=== PATIENT | male | born 1975 | race Caucasian/White ===

== ENCOUNTER 2018-03-06 12:41 | Emergency (ER) | payer SELFPAY ==
[2018-03-06 12:42] VITALS: BP 142/68; PULSE 103; RESP 18; TEMP 36.7; O2SAT 97; BMI 30.1
--- NOTE | 2018-03-06 14:05 | ED.RN ---
CALLED FOR PT IN WAITING AREA [facility]. NOT PRESENT.
--- NOTE | 2018-03-06 14:40 | ED.RN ---
second attempt to call pt for room. not present./ lwbs
== END 2018-03-06 15:00 | disposition left against medical advice (07) ==
LOC: ED 15:38
PROVIDERS: Emergency Provider Emergency Medicine
DX: M54.9 Dorsalgia, unspecified (principal)

== ENCOUNTER 2018-04-04 10:11 | Emergency (ER) | payer MEDICAID, SELFPAY ==
[2018-04-04 10:12] VITALS: BP 117/78; PULSE 108; RESP 12; TEMP 36.4; BMI 29.8
--- NOTE | 2018-04-04 10:23 | RAD_ITS ---
STUDY: X-RAY - PELVIS REASON FOR EXAM: Male, 42 years old. Fall off ladder. TECHNIQUE: One view of the pelvis was obtained. COMPARISON: None. FINDINGS: There is a non-specific bowel gas pattern. Normal visualized soft tissue structures. Normal bilateral iliac wings, sacroiliac joints and visualized sacrum. Normal visualized bilateral superior and inferior pubic rami. Normal pubic symphysis. Normal ischial tuberosities. Normal visualized right femoral head. Normal right acetabulum. Normal right hip joint. Normal visualized left femoral head. Normal left acetabulum. Normal left hip joint. RAD/Pelvis 1 or 2 Views IMPRESSION: Normal x-ray examination of the pelvis. Electronically Signed: Anabel Whiteside MD at 11:24 EDT Tel , Service support ,
[2018-04-04] MEDS: Ketorolac 60 MG/2 ML Vial IM (10:31)
--- NOTE | 2018-04-04 10:35 | RAD_ITS ---
STUDY: X-RAY - LEFT WRIST REASON FOR EXAM: Male, 42 years old. Fall off ladder. TECHNIQUE: 3 view(s) of the wrist were obtained. COMPARISON: None. FINDINGS: Normal visualized distal radius and ulna. Normal radiocarpal articulation. Normal distal radioulnar articulation. Normal carpal bones. Normal carpal articulations. Normal carpometacarpal articulation of the thumb. Normal second through fifth carpometacarpal articulations. Normal visualized metacarpal bones. The soft tissue structures are unremarkable. RAD/Wrist min 3 Views IMPRESSION: Normal x-ray examination of the wrist. Electronically Signed: Anabel Whiteside MD at 11:24 EDT Tel , Service support ,
--- NOTE | 2018-04-04 10:50 | RAD_ITS ---
STUDY: X-RAY - RIGHT FEMUR REASON FOR STUDY: Male, 42 years old. pt. fell off of a ladder, complaining of distal femur pain and wrist pain TECHNIQUE: Radiological exam, femur, minimum 2 views COMPARISON: None. FINDINGS: Normal visualized femur. Normal visualized soft tissue structure. RAD/Femur Min 2 Views IMPRESSION: Normal x-ray examination of the femur. Electronically Signed: Bladimir Alejandro MD at 11:30 EDT Tel , Service support ,
--- NOTE | 2018-04-04 10:57 | ED.VISSUMM ---
- ER Visit Summary Date of Service: 04/04/18 Chief Complaint: 42-year-old male presents with right femur pain after a fall. History of Present Illness: The patient is a 42 M who was on a ladder approximately 8 feet up when the ladder gave out underneath him and he fell sideways. He essentially hit his right femur on the ladder as it hit the ground. He also injured his left wrist attempting to grab the ladder. He did not hit his head or lose consciousness. He denies any other injuries. He recalls all details of the event. His right knee pain or leg pain. No paresthesias. No weakness. No back pain. On the right femur pain midshaft. Physical Examination: Ends of head trauma. No C-spine tenderness. No abrasions on his back, chest wall, or abdomen. No tenderness anywhere on his trunk or back. Mild pain with range of motion of the left wrist but no bony tenderness. No signs of trauma there. Mild midshaft right femur tenderness but skin is intact. Compartments are soft. No swelling. No pain with range of motion of the knee or tenderness. Strong pulses in his right lower extremity. No other tenderness noted on the lower extremities. Exam is normal. Test Results: Femur, hip and pelvis, and left wrist plain films all negative Emergency Department Course and Treatment: Given intramuscular Toradol here. On reexamination, he is sleeping. He asked for stronger pain medication but when we went into the room to give him morphine, he was sleeping and when I aroused him he states that he just wants to go home. He has no sign of head trauma and states that he did not hit his head. He recalls all details of the event and has a normal neurologic exam. I do not suspect head injury. It sounds like his fall was essentially broke by staying on the ladder and he essentially struck his femur against the ladder. Treatment Plan: Imaging is negative. He has soft compartments. No evidence of compartment syndrome. Strong distal pulses. Pain is not out of proportion to exam. He is comfortable going home. He will given a prescription for naproxen and Motrin here if he is any worse. Disposition: Home in stable condition Impression: Initial encounter right femur contusion after mechanical fall, initial encounter left wrist sprain This note was generated with [employer] software. It may contain incorrect words, spelling, and punctuation that were not noted in review of the chart prior to signing ED Disposition - Plan for ED Patient: Chief Complaint: Lower Extremity Injury Instructions: ED Contusion Lower Ext Prescriptions: Naproxen [Naprosyn] 500 mg PO BID PRN #20 tablet Referrals: Care Physician,No Primary [Primary Care Provider] -
--- NOTE | 2018-04-04 11:50 | ED.RN ---
PT SIG OTHER COMES OUT OF ROOM ASKING FOR ICE PACK FOR PT'S PAIN. ICE PACK GIVEN. PT REPORTS TORADOL HAS NOT HELPED PAIN. PT WRITHING ON CART HOLDING ONTO RT THIGH. DR ALVAREZ NOTIFIED OF PT'S CONTINUED PAIN- NEW ORDER RECEIVED FOR MORPHINE. PT INFORMED MORPHINE ORDERED. PT AGREEABLE TO RECEIVING MORPHINE AND CONTINUES TO WRITHE IN PAIN ON CART. THIS NURSE IS GETTING ONTO COMPUTER PT FALLS ASLEEP. NO DISTRESS NOTED. THIS NURSE STANDS BESIDE BED FOR AT LEAST 3MIN WHILE PT SLEEPS. DR INFORMED OF PT GOING TO SLEEP EASILY AND STAYING ASLEEP WITH NO DISTRESS NOTED. DR ALVAREZ TO BEDSIDE-OBSERVES PT SLEEPING SOUNDLY- PT AWAKENS AFTER DR ALVAREZ SPEAKS TO PT MULT TIMES AND HAS TO TOUCH PT TO AROUSE PT. PT THEN STARTS WRITHING AGAIN IN PAIN. DR ALVAREZ ASKED HOW PT CAN SLEEP SO SOUNDLY WITH THAT AMOUNT OF PAIN. PT RESPONDS THAT HE'S BEEN TIRED TODAY AND IT DOESN'T HURT WHEN HE'S ASLEEP. DR ALVAREZ CANCELS MORPHINE ORDER AND STATES HE'LL GET D/C INSTRUCTIONS READY.
[2018-04-04 12:58] VITALS: BP 115/83; PULSE 88; RESP 16; O2SAT 99
== END 2018-04-04 13:00 | disposition home or self-care (01) ==
LOC: ED 10:33
PROVIDERS: Emergency Provider Emergency Medicine
DX: S70.11XA Contusion of right thigh, initial encounter (principal); S63.502A Unspecified sprain of left wrist, initial encounter; W11.XXXA Fall on and from ladder, initial encounter; Y93.9 Activity, unspecified; Y92.9 Unspecified place or not applicable; Y99.9 Unspecified external cause status; Z72.0 Tobacco use
CPT/HCPCS: 72170; 73110; 73552; 96372; 99282